=== PATIENT | male | born 1990 | race Hispanic/Latino ===

== ENCOUNTER 2021-06-20 00:18 | Emergency (ER) | payer OTHER ==
[2021-06-20] MEDS ORDERED: HYDROCODONE/APAP 5/325 MG TAB ONE (01:43)
[2021-06-20] MEDS ORDERED: AMOX/K CLAV 875 MG TAB ONE (01:43)
[2021-06-20] MEDS ORDERED: TETANUS & DIPHTHERIA TOX,ADULT 0.5 ML VIAL ONE (01:44)
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
[2021-06-20 02:51] VITALS: TEMP 98.2; O2SAT 99
[2021-06-20 02:53] VITALS: BP 120/83
--- NOTE | 2021-06-20 08:36 | RAD REPORT ---
EXAM DESCRIPTION: RAD - Hand Right 3 View - 06/20/2021 1:05 am CLINICAL HISTORY: Right hand pain status post injury FINDINGS: Sideplate and screws affix old fractures proximal fourth and fifth metacarpals. Mildly displaced acute fracture metacarpal neck with angulation present at fracture site No dislocation
== END 2021-06-20 02:44 | disposition home or self-care (01) ==
LOC: ER 00:18
PROC: 2W3CX1Z Immobilization of Right Lower Arm using Splint (ICD-10-PCS; principal; 2021-06-20)
DX: S62.396A Other fracture of fifth metacarpal bone, right hand, initial encounter for closed fracture (principal); W51.XXXA Accidental striking against or bumped into by another person, initial encounter; Z23 Encounter for immunization
CPT/HCPCS: 90471; 90714; 99283